=== PATIENT | female | born 1980 | race Caucasian/White ===

== ENCOUNTER 2021-08-04 00:45 | Emergency (ER) | payer MEDICAID ==
[~2021-08-04] VITALS: Ht 162.6 cm; Wt 90.7 kg
[2021-08-04 00:58] VITALS: BP 148/92
--- NOTE | 2021-08-04 01:04 | NUR ---
TO BED 10 FROM TRIAGE
--- NOTE | 2021-08-04 01:05 | NUR ---
slipped in shower and hit back of head. "I'm nauseous and I feel like I'm going to pass out". is awake and alert, ambulates with steady gait
--- NOTE | 2021-08-04 02:34 | NUR ---
DR. FIGUEROA AT BEDSIDE FOR EXAM
[2021-08-04] MEDS ORDERED: ONDA-24 SL (02:42)
[2021-08-04] MEDS: ONDANSETRON 4 MG ODT PO ONE (02:46)
--- NOTE | 2021-08-04 02:46 | NUR ---
PATIENT CLEARED FOR DISCHARGE AT THIS TIME. NO FURTHER QUESTIONS FOLLOWING DISCHARGE TEACHING. ADVISED TO FOLLOW UP WITH PCP
== END 2021-08-04 02:46 | disposition home or self-care (01) ==
LOC: MED 00:45
DX: S06.0X9A Concussion with loss of consciousness of unspecified duration, initial encounter (principal); S16.1XXA Strain of muscle, fascia and tendon at neck level, initial encounter; R03.0 Elevated blood-pressure reading, without diagnosis of hypertension; E11.9 Type 2 diabetes mellitus without complications; I10 Essential (primary) hypertension; Z79.899 Other long term (current) drug therapy; W18.2XXA Fall in (into) shower or empty bathtub, initial encounter; Y93.89 Activity, other specified; Y92.89 Other specified places as the place of occurrence of the external cause; Y99.8 Other external cause status
CPT/HCPCS: 99283; Q0162

== ENCOUNTER 2022-12-05 00:05 | Emergency (ER) | payer MEDICAID ==
[~2022-12-05] VITALS: Ht 162.6 cm; Wt 81.6 kg
[~2022-12-05 00:05] MED LIST: ONDA-188 SL
[2022-12-05 00:25] VITALS: BP 160/90
--- NOTE | 2022-12-05 00:29 | NUR ---
TO LOBBY A/W BED AMBULATORY
--- NOTE | 2022-12-05 04:35 | NUR ---
PT CALLED IN LOBBY AND OUTSIDE WITH NO ANSWER. PT LWBS
== END 2022-12-05 04:35 | disposition left against medical advice (07) ==
LOC: MED 00:05
DX: L02.811 Cutaneous abscess of head [any part, except face] (principal); Z53.21 Procedure and treatment not carried out due to patient leaving prior to being seen by health care provider